=== PATIENT | male | born 1980 | race American Indian/Alaskan Native ===

== ENCOUNTER 2018-12-07 20:43 | Emergency (ER) | payer SELFPAY ==
[2018-12-07 21:47] VITALS: BP 166/98
--- NOTE | 2018-12-07 21:48 | Event Note ---
ED Screening Note Date of service: 12/07/18 Time: 21:45 ED Screening Note: presents with right hnd pain and swelling after fall this am This initial assessment/diagnostic orders/clinical plan/treatment(s) is/are subject to change based on patients health status, clinical progression and re-assessment by fellow clinical providers in the ED. Further treatment and workup at subsequent clinical providers discretion. Patient/guardian urged not to elope from the ED as their condition may be serious if not clinically assessed and managed. Initial orders include: xr hand
--- NOTE | 2018-12-07 23:13 | XRay Report ---
RIGHT HAND, 2 VIEWS 12/07/2018 INDICATION / CLINICAL INFORMATION: right hand pain and swell. COMPARISON: None available. FINDINGS: There are fractures of the mid shafts of the 34th metacarpals with dorsal angulation. Signer Name: Jona Corona MD Signed: 12/07/2018 11:09 PM Workstation Name: [id number]
--- NOTE | 2018-12-07 23:52 | Emergency Department Report ---
ED Upper Extremity Inj HPI - General Chief Complaint: Extremity Injury, Upper Stated Complaint: RIGHT HAND INJURY Time Seen by Provider: 12/07/18 21:44 Source: patient Mode of arrival: Ambulatory Limitations: No Limitations - History of Present Illness Initial Comments: 38 year old -[place] male comes in for right hand injury status post fall today with. Patient able to move his fingers and has good capillary refills. Patient has a past medical history of hypertension. Patient denies any pain at this moment. Complaint: Injury to:: right, hand -: This morning Other Extremity Injury: Hand: Right Other Injuries: none Severity scale (0 -10): 0 Improves With: none Worsens With: movement of extremity Context: fall Associated Symptoms: denies other symptoms Treatments Prior to Arrival: cold therapy - Related Data Previous Rx's Medication Instructions Recorded Last Taken Type Lisinopril/Hydrochlorothiazide 1 tab PO QDAY #30 tablet 06/22/14 Unknown Rx [Zestoretic 10-12.5 mg] HYDROcodone/APAP 7.5-325 [[place] 1 each PO Q8HR PRN #12 tablet 12/07/18 Unknown Rx 7.5/325] Ibuprofen [Motrin 800 MG tab] 800 mg PO Q8HR PRN #30 tablet 12/07/18 Unknown Rx Allergies Allergy/AdvReac Type Severity Reaction Status Date / Time No Known Allergies Allergy Verified 06/22/14 14:24 ED Review of Systems ROS: Stated complaint: RIGHT HAND INJURY Other details as noted in HPI Comment: All other systems reviewed and negative ED Past Medical Hx - Past Medical History Previous Medical History?: Yes Hx Hypertension: Yes Hx Asthma: Yes - Social History Smoking Status: Current Every Day Smoker Substance Use Type: Marijuana - Medications Home Medications: Home Medications Medication Instructions Recorded Confirmed Last Taken Type Lisinopril/Hydrochlorothiazide 1 tab PO QDAY #30 tablet 06/22/14 Unknown Rx [Zestoretic 10-12.5 mg] HYDROcodone/APAP 7.5-325 [[place] 1 each PO Q8HR PRN #12 tablet 12/07/18 Unknown Rx 7.5/325] Ibuprofen [Motrin 800 MG tab] 800 mg PO Q8HR PRN #30 tablet 12/07/18 Unknown Rx ED Physical Exam - General Limitations: No Limitations General appearance: alert, in no apparent distress - Head Head exam: Present: atraumatic, normocephalic - Eye Eye exam: Present: normal appearance - Expanded Upper Extremity Exam Right Shoulder Exam: Present: normal inspection Upper Arm exam: Present: normal inspection Elbow exam: Present: normal inspection Forearm Wrist exam: Present: normal inspection Hand Wrist exam: Present: tenderness, swelling Neuro motor exam: Present: wrist extension intact, thumb opposition intact, thumb IP flexion intact, thumb adduction intact Neurosensory exam: Present: 2-point discrimination Vascular: Present: normal capillary refill - Neurological Exam Neurological exam: Present: alert, oriented X3, normal gait - Psychiatric Psychiatric exam: Present: normal affect, normal mood - Skin Skin exam: Present: warm, dry, intact, normal color. Absent: rash ED Course Vital Signs 12/07/18 21:44 Temperature 98.2 F Pulse Rate 102 H Respiratory 18 Rate Blood Pressure 166/98 O2 Sat by Pulse 99 Oximetry ED Medical Decision Making - Radiology Data Radiology results: report reviewed Patient: FEI PARRISH MR#: [id number] : 1980 Acct:[id number] Age/Sex: 38 / M ADM Date: 12/07/18 Loc: ED Attending Dr: Ordering Physician: RUDDY GOLDBERG Date of Service: 12/07/18 Procedure(s): XR hand 2V RT Accession Number(s): [id number] cc: RUDDY GOLDBERG Fluoro Time In Minutes: RIGHT HAND, 2 VIEWS 12/07/2018 INDICATION / CLINICAL INFORMATION: right hand pain and swell. COMPARISON: None available. FINDINGS: There are fractures of the mid shafts of the 34th metacarpals with dorsal angulation. Signer Name: Jona Corona MD Signed: 12/07/2018 11:09 PM Workstation Name: [id number] Transcribed By: GA Dictated By: Jona Corona MD Electronically Authenticated By: Jona Corona MD Signed Date/Time: 12/07/182308 DD/ 07 TD/TT: - Medical Decision Making 38 year old -[place] male comes in for right hand injury status post fall today with. Patient able to move his fingers and has good capillary refills. Patient has a past medical history of hypertension. Patient denies any pain at this moment. X-ray shows that patient has a fracture or third and fourth metatarsal carpal with deep angulation. Spoke to Dr. Goldstein orthopedic provider he recommends putting patient in a volar splint and have him follow up in clinic tomorrow. Critical care attestation.: If time is entered above; I have spent that time in minutes in the direct care of this critically ill patient, excluding procedure time. ED Disposition Clinical Impression: Boxer's metacarpal fracture, neck, closed Disposition: TO HOME OR SELFCARE Is pt being admited?: No Does the pt Need Aspirin: No Condition: Stable Instructions: Hand Fracture (ED), Boxer Fracture (ED) Additional Instructions: Pain medication as needed. It's very important free to follow-up with orthopedic provider in [address] Goldstein orthopedic provider information is listed below for your convenience. Prescriptions: Ibuprofen [Motrin 800 MG tab] 800 mg PO Q8HR PRN #30 tablet PRN Reason: Pain , Severe (7-10) HYDROcodone/APAP 7.5-325 [[place] 7.5/325] 1 each PO Q8HR PRN #12 tablet PRN Reason: Pain Referrals: MERT GOLDSTEIN MD [Staff Physician] - 3-5 Days MAX ROWE MD [Staff Physician] - 3-5 Days Forms: Work/School Release Form(ED)
== END 2018-12-08 00:15 | disposition home or self-care (01) ==
LOC: ED 20:43
DX: S62.331A Displaced fracture of neck of second metacarpal bone, left hand, initial encounter for closed fracture (principal); I10 Essential (primary) hypertension; F17.200 Nicotine dependence, unspecified, uncomplicated; W19.XXXA Unspecified fall, initial encounter; Y93.89 Activity, other specified; Y92.89 Other specified places as the place of occurrence of the external cause; Y99.8 Other external cause status

== ENCOUNTER 2020-04-07 14:28 | Emergency (ER) | payer SELFPAY ==
[2020-04-07 16:22] LABS: Basophils # (Auto) 0.1 K/mm3 (0.0-0.1); Basophils % (Auto) 0.7 % (0.0-1.8); Eosinophils # (Auto) 0.2 K/mm3 (0.0-0.4); Eosinophils % (Auto) 2.7 % (0.0-4.3); Hematocrit 46.2 % (35.5-45.6); Hemoglobin 15.6 gm/dl (11.8-15.2); Lymphocytes # (Auto) 1.9 K/mm3 (1.2-5.4); Lymphocytes % (Auto) 21.4 % (13.4-35.0); Mean Corpuscular HGB Conc 34 % (32-34); Mean Corpuscular Volume 87 fl (84-94); Monocytes # (Auto) 0.4 K/mm3 (0.0-0.8); Monocytes % (Auto) 4.8 % (0.0-7.3); Platelet Count 353 K/mm3 (140-440); Red Blood Count 5.31 M/mm3 (3.65-5.03)
[2020-04-07 16:31] LABS: Alanine Aminotransferase 33 units/L (7-56); Albumin 4.1 g/dL (3.9-5); BUN/Creatinine Ratio 9; Blood Urea Nitrogen 12 mg/dL (9-20); Calcium 9.1 mg/dL (8.4-10.2); Hemolysis Index 20
--- NOTE | 2020-04-07 16:59 | Event Note ---
ED Screening Note Date of service: 04/07/20 Time: 15:19 ED Screening Note: 40-year-old -[place] male presents to the emergency room for elevated blood pressure, blurred vision and questionable eye infection. Patient states that he has not had his blood pressure medication in a while. This initial assessment/diagnostic orders/clinical plan/treatment(s) is/are subject to change based on patients health status, clinical progression and re- assessment by fellow clinical providers in the ED. Further treatment and workup at subsequent clinical providers discretion. Patient/guardian urged not to elope from the ED as their condition may be serious if not clinically assessed and managed. Initial orders include:
[2020-04-08] MEDS ORDERED: cloNIDine 0.2 MG TAB PO STA (01:50)
--- NOTE | 2020-04-08 02:02 | Emergency Department Report ---
ED General Adult HPI - General Chief complaint: Eye Problems Stated complaint: HIGH BLOOD PRESSURE/BLURRY VISION Time Seen by Provider: 04/08/20 01:48 Source: patient Mode of arrival: Ambulatory Limitations: No Limitations - History of Present Illness Initial comments: 40-year-old -Cypriot male with known history of hypertension noncompliant with medications due to an unable to get a refill at [facility] this just is he was sick the last time he had a visit. Has not yet follow-up with his doctor states that since primary care doctor over a year for reasons unknown. Reports being asymptomatic and knowing that his blood pressure is elevated request medication refills and also medication for his eye which he states has been red irritated with heavy mucus buildup in the morning when occasional blurred vision. Reports no fever, chills, sweats no chest pain or palpitations no headache or dizziness Radiation: non-radiation Quality: dull Consistency: constant Improves with: none Worsens with: none Associated Symptoms: nausea/vomiting. denies: confusion, chest pain, loss of appetite, malaise, seizure, syncope, weakness - Related Data Previous Rx's Medication Instructions Recorded Last Taken Type Lisinopril/Hydrochlorothiazide 1 tab PO QDAY #30 tablet 06/22/14 Unknown Rx [Zestoretic 10-12.5 mg] HYDROcodone/APAP 7.5-325 [[place] 1 each PO Q8HR PRN #12 tablet 12/07/18 Unknown Rx 7.5/325] Ibuprofen [Motrin 800 MG tab] 800 mg PO Q8HR PRN #30 tablet 12/07/18 Unknown Rx Lisinopril/Hydrochlorothiazide 1 each PO DAILY #30 tablet 04/08/20 Unknown Rx [Zestoretic 10-12.5 mg Tablet] Tobramycin [Tobrex] 1 drops OU Q6H #1 bottle 04/08/20 Unknown Rx Allergies Allergy/AdvReac Type Severity Reaction Status Date / Time No Known Allergies Allergy Verified 06/22/14 14:24 ED Review of Systems ROS: Stated complaint: HIGH BLOOD PRESSURE/BLURRY VISION Other details as noted in HPI Comment: All other systems reviewed and negative ED Past Medical Hx - Past Medical History Previous Medical History?: Yes Hx Hypertension: Yes Hx Asthma: Yes - Surgical History Past Surgical History?: No - Social History Smoking Status: Never Smoker Substance Use Type: None - Medications Home Medications: Home Medications Medication Instructions Recorded Confirmed Last Taken Type Lisinopril/Hydrochlorothiazide 1 tab PO QDAY #30 tablet 06/22/14 Unknown Rx [Zestoretic 10-12.5 mg] HYDROcodone/APAP 7.5-325 [[place] 1 each PO Q8HR PRN #12 tablet 12/07/18 Unknown Rx 7.5/325] Ibuprofen [Motrin 800 MG tab] 800 mg PO Q8HR PRN #30 tablet 12/07/18 Unknown Rx Lisinopril/Hydrochlorothiazide 1 each PO DAILY #30 tablet 04/08/20 Unknown Rx [Zestoretic 10-12.5 mg Tablet] Tobramycin [Tobrex] 1 drops OU Q6H #1 bottle 04/08/20 Unknown Rx ED Physical Exam - General Limitations: No Limitations General appearance: alert, in no apparent distress - Head Head exam: Present: atraumatic, normocephalic - Eye Eye exam: Present: normal appearance, PERRL, EOMI, conjunctival injection, other. Absent: nystagmus - ENT ENT exam: Present: normal exam, normal orophraynx, mucous membranes moist, TM's normal bilaterally (Negative funduscopic examination) - Neck Neck exam: Present: normal inspection - Respiratory Respiratory exam: Present: normal lung sounds bilaterally. Absent: respiratory distress - Cardiovascular Cardiovascular Exam: Present: regular rate, normal rhythm. Absent: systolic murmur, diastolic murmur, rubs, gallop - GI/Abdominal GI/Abdominal exam: Present: soft, normal bowel sounds - Rectal Rectal exam: Present: deferred - Extremities Exam Extremities exam: Present: normal inspection - Back Exam Back exam: Present: normal inspection - Neurological Exam Neurological exam: Present: alert, oriented X3 - Psychiatric Psychiatric exam: Present: normal affect, normal mood - Skin Skin exam: Present: warm, dry, intact, normal color. Absent: rash ED Course Vital Signs 04/07/20 04/08/20 15:03 01:56 Pulse Rate 94 H Respiratory 20 Rate Blood Pressure 205/151 Blood Pressure 146/100 [Right] O2 Sat by Pulse 97 Oximetry ED Medical Decision Making - Lab Data Result diagrams: 04/07/20 15:36 04/07/20 15:36 Critical care attestation.: If time is entered above; I have spent that time in minutes in the direct care of this critically ill patient, excluding procedure time. ED Disposition Clinical Impression: HTN (hypertension), Conjunctivitis Is pt being admited?: No Does the pt Need Aspirin: No Condition: Stable Instructions: Hypertension (ED), Hypertension, Adult, Hypertension, Adult, [id number], Managing Your Hypertension, Preventing Hypertension Prescriptions: Tobramycin [Tobrex] 1 drops OU Q6H #1 bottle Lisinopril/Hydrochlorothiazide [Zestoretic 10-12.5 mg Tablet] 1 each PO DAILY #30 tablet Referrals: PRIMARY CARE, [Primary Care Provider] - 3-5 Days
[2020-04-08 04:48] VITALS: BP 137/96
== END 2020-04-08 04:50 | disposition home or self-care (01) ==
LOC: ED 14:28
DX: I10 Essential (primary) hypertension (principal); H10.9 Unspecified conjunctivitis; J45.909 Unspecified asthma, uncomplicated; Z79.899 Other long term (current) drug therapy
CPT/HCPCS: 36415; 80053; 85025

== ENCOUNTER 2020-11-17 15:25 | Emergency (ER) | payer OTHER ==
[2020-11-17] MEDS ORDERED: ASPIRIN 325 MG TAB PO ONE (15:40)
[2020-11-17 15:43] VITALS: BP 189/119
--- NOTE | 2020-11-17 15:43 | Event Note ---
ED Screening Note ED Screening Note: Patient presents for chest pain that began suddenly today while he was outside working on his car States he was outside for approximately 2 or 3 hours in the heat He states that the chest pain feels like a tightness and he began to feel short of breath He has a history of hypertension and takes lisinopril which he reports he took this morning He denies any radiation of the pain He denies any fever, nausea, vomiting, diarrhea, leg swelling He denies any recent travel, recent surgeries This initial assessment/diagnostic orders/clinical plan/treatment(s) is/are subject to change based on patients health status, clinical progression and re- assessment by fellow clinical providers in the ED. Further treatment and workup at subsequent clinical providers discretion. Patient/guardian urged not to elope from the ED as their condition may be serious if not clinically assessed and managed. Initial orders include: Chest pain protocol
--- NOTE | 2020-11-17 16:06 | XRay Report ---
CHEST 2 VIEWS INDICATION / CLINICAL INFORMATION: chest pain. COMPARISON: None available. FINDINGS: SUPPORT DEVICES: None. HEART / MEDIASTINUM: No significant abnormality. LUNGS / PLEURA: No significant pulmonary or pleural abnormality. No pneumothorax. ADDITIONAL FINDINGS: No significant additional findings. IMPRESSION: 1. No acute findings. Signer Name: Grzegorz Ferrara MD Signed: 11/17/2020 4:02 PM Workstation Name: [id number]
[2020-11-17 16:20] LABS: Basophils # (Auto) 0.1 K/mm3 (0.0-0.1); Basophils % (Auto) 0.6 % (0.0-1.8); Eosinophils # (Auto) 0.2 K/mm3 (0.0-0.4); Lymphocytes # (Auto) 1.8 K/mm3 (1.2-5.4); Lymphocytes % (Auto) 17.5 % (13.4-35.0); Monocytes # (Auto) 0.7 K/mm3 (0.0-0.8); Monocytes % (Auto) 6.5 % (0.0-7.3)
[2020-11-17 16:35] LABS: Alanine Aminotransferase 35 units/L (7-56); Albumin 4.5 g/dL (3.9-5); BUN/Creatinine Ratio 9; Blood Urea Nitrogen 13 mg/dL (9-20); Calcium 8.6 mg/dL (8.4-10.2); Hemolysis Index 7
[2020-11-17 16:42] LABS: Hematocrit 47.2 % (35.5-45.6); Mean Corpuscular HGB Conc 34 % (32-34); Mean Corpuscular Volume 88 fl (84-94); Platelet Count 338 K/mm3 (140-440); Red Blood Count 5.39 M/mm3 (3.65-5.03)
--- NOTE | 2020-11-18 14:31 | Electrocardiograph Report ---
[facility] Test Date: 2020-11-17 Test Time: 15:28:15 Pat Name: FEI PARRISH Department: Room: Gender: M [employer]: GWENDOLYN : 1980 Requested By: SUSIE MARTELL Order Number: [id number] Reading MD: Calvin Khan Measurements Intervals [place] Rate: 77 P: 0 DC: 177 QRS: -6 QRSD: 100 T: 34 QT: 402 QTc: 455 Interpretive Statements Sinus rhythm Left ventricular hypertrophy No previous ECG available for comparison Electronically Signed On 11-18-2020 14:31:35 EDT by Calvin Khan
== END 2020-11-17 19:00 ==
LOC: ED 15:25
DX: R07.9 Chest pain, unspecified (principal); Z53.21 Procedure and treatment not carried out due to patient leaving prior to being seen by health care provider
CPT/HCPCS: 36415; 71046; 80053; 82550; 83880; 84484; 85025; 93005